=== PATIENT | female | born 2000 | race Caucasian/White ===

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

== ENCOUNTER 2020-03-23 21:19 | Emergency (ER) | payer OTHER ==
[~2020-03-23] VITALS: Ht 162.6 cm; Wt 49.4 kg
[2020-03-23 21:34] VITALS: BP 114/63; Ht 162.6 cm; Wt 49.4 kg
== END 2020-03-23 21:58 | disposition home or self-care (01) ==
LOC: ED 21:19
DX: M79.644 Pain in right finger(s) (principal); S63.601A Unspecified sprain of right thumb, initial encounter; X58.XXXA Exposure to other specified factors, initial encounter; Y93.89 Activity, other specified; Y92.89 Other specified places as the place of occurrence of the external cause; Y99.8 Other external cause status